=== PATIENT | female | born 1995 | race Caucasian/White ===

== ENCOUNTER → 2023-01-24 10:02 | Outpatient (BNVA) | payer MEDICAID, SELFPAY | PROVIDERS: Family Provider Nurse Practitioner Family; PCP Nurse Practitioner Family; Visit Provider Nurse Practitioner Family | DX: E16.2 Hypoglycemia, unspecified (principal); F41.9 Anxiety disorder, unspecified; O24.419 Gestational diabetes mellitus in pregnancy, unspecified control; Z78.9 Other specified health status; Z13.220 Encounter for screening for lipoid disorders; R53.83 Other fatigue | CPT/HCPCS: 80053; 80061; 84443 ==

== ENCOUNTER → 2023-04-03 10:16 | Outpatient (BNVA) | payer MEDICAID, SELFPAY | PROVIDERS: Family Provider Nurse Practitioner Family; PCP Nurse Practitioner Family; Visit Provider Nurse Practitioner Family | DX: E16.2 Hypoglycemia, unspecified (principal); R53.83 Other fatigue; J06.9 Acute upper respiratory infection, unspecified | CPT/HCPCS: 80053; 84443; 85025 ==

== ENCOUNTER → 2023-04-25 11:35 | Outpatient (BNVA) | payer MEDICAID, SELFPAY | PROVIDERS: Family Provider Nurse Practitioner Family; PCP Nurse Practitioner Family; Visit Provider Nurse Practitioner Family | DX: Z12.4 Encounter for screening for malignant neoplasm of cervix (principal) | CPT/HCPCS: 88175 ==